=== PATIENT | female | born 1980 | race Caucasian/White ===

== ENCOUNTER → 2023-02-24 | Outpatient (CLI) | payer BC ==
--- NOTE | 2023-02-24 11:55 | Diagnostic Imaging Report ---
INDICATION: Bilateral 3-D screening mammograms This is a baseline study. There is mild to moderate breast parenchymal density, bilaterally. There is an approximately 1.3 cm circumscribed nodule in the central right breast just slightly lateral to the nipple line. Otherwise no dominant mass or suspicious clustered microcalcification is seen. IMPRESSION: Category 0, additional imaging is required. Focused ultrasonography should be performed in the central right breast to determine cystic versus solid nature of 1.3 cm nodule. ACR BI-RADS Category 0: Incomplete. (Needs additional imaging evaluation). Result letter will be mailed to the patient. Note: At least 10% of breast cancer is not imaged by mammography. Dictated by: Dictated on workstation # [id number]
== END ==
LOC: RAD 08:15
PROVIDERS: ATTEND Family Medicine
DX: Z12.31 Encounter for screening mammogram for malignant neoplasm of breast (principal); N63.10 Unspecified lump in the right breast, unspecified quadrant
CPT/HCPCS: 77063; 77067

== ENCOUNTER → 2023-03-23 | Outpatient (CLI) | payer BC ==
--- NOTE | 2023-03-23 16:51 | Diagnostic Imaging Report ---
INDICATION: Abnormal screening mammogram. Correlation is made with screening mammogram from 02/24/2023. Sonographic interrogation outer right breast was performed. There is a circumscribed, ovoid solid nodule at the 9 o'clock location of the right breast measuring 1.2 x 1.2 x 0.6 cm. This is wider than it is tall. There does appear to be mild posterior acoustic enhancement. There is some mild internal vascularity. No shadowing is seen. This does correlate with the density noted mammographically. IMPRESSION: Circumscribed, ovoid solid mass at the 9 o'clock location right breast, corresponding to the mammographic density. 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 Even so, followup right breast ultrasound in 6 months is recommended to confirm stability. ACR BI-RADS Category 3: Probably benign findings. Result letter will be mailed to the patient. Note: At least 10% of breast cancer is not imaged by mammography. BI-RADS Category 3 Dictated by: Dictated on workstation # [id number]
== END ==
LOC: RAD 12:17
PROVIDERS: ATTEND Family Medicine
DX: N63.15 Unspecified lump in the right breast, overlapping quadrants (principal)